=== PATIENT | female | born 1965 | race Caucasian/White ===

== ENCOUNTER 2017-09-21 11:37 | Outpatient (CLI) | payer OTHER ==
--- NOTE | 2017-09-21 14:47 | RAD ---
CERVICAL SPINE FIVE VIEWS: HISTORY: Injury. FINDINGS: The cervical vertebrae maintain height. Minimal anterolisthesis of C3. Disk spaces are preserved. Very mild degenerative change. Posterior elements are normally aligned. Foramina are patent. IMPRESSION: No evidence of acute process. POS: [facility]
== END 2017-09-21 11:38 | disposition home or self-care (01) ==
LOC: MADRAD 11:37
PROVIDERS: ATTEND General Practice
DX: M62.838 Other muscle spasm (principal)
CPT/HCPCS: 72050

== ENCOUNTER 2021-03-24 14:35 | Outpatient (CLI) | payer OTHER, SELFPAY | END 2021-03-24 14:36 | disposition home or self-care (01) | LOC: MADRAD 14:35 | PROVIDERS: ATTEND Nurse Practitioner Family | DX: M54.41 Lumbago with sciatica, right side (principal); M43.12 Spondylolisthesis, cervical region; M43.13 Spondylolisthesis, cervicothoracic region; Z97.5 Presence of (intrauterine) contraceptive device | CPT/HCPCS: 72100; 72220 ==

== ENCOUNTER 2025-06-27 13:53 | Emergency (ER) | payer BC ==
[2025-06-27] MEDS ORDERED: diphenhydrAMINE 50 MG/ML VIAL ONE (14:59)
[2025-06-27] MEDS ORDERED: Prochlorperazine 10 MG/2 ML VIAL ONE (14:59)
[2025-06-27] MEDS ORDERED: Magnesium 2 GM/50 ML BAG (IN WATER) ONE (14:59)
[2025-06-27] MEDS ORDERED: Ketorolac Tromethamine 30 MG (1 mL) VIAL ONE (15:00)
[2025-06-27 15:18] LABS: #Basophils 0.0 thou/uL (0.0-0.2); #Eosinophils 0.1 thou/uL (0.0-0.7); #Lymphocytes 1.2 thou/uL (1.20-3.40); #Monocytes 0.3 thou/uL (0.11-0.59); #Neutrophils 4.9 thou/uL (1.40-6.50); %Basophils 0.6 % (0.0-1.0); %Eosinophils 0.9 % (0.0-10.0); %Lymphocytes 17.8 % (21.0-51.0); %Monocytes 5.1 % (0.0-10.0); %Neutrophils 75.5 % (42.0-75.0); Hematocrit 36.7 % (36.0-47.0); Hemoglobin 12.6 g/dL (12.0-16.0); Mean Corpuscular Hemoglobin 32.0 pg (27.0-31.0); Mean Corpuscular Volume 93.5 fl (78.0-98.0); Platelet Count 244 10x3/uL (130-400); Red Blood Cell (RBC) Count 3.93 mill/uL (4.20-5.40); White Blood Cell (WBC) Count 6.5 10x3/uL (4.8-10.8)
[2025-06-27 15:29] LABS: ALT (SGPT) 18 U/L (Less than 34); AST (SGOT) 19 U/L (11-34); Albumin 4.4 g/dL (3.1-4.5); Alkaline Phosphatase 59 U/L (40-110); Anion Gap 12 mmol/L (10-20); BUN (Urea Nitrogen) 14 mg/dL (9.8-20.1); Bilirubin, Total 0.7 mg/dL (0.3-1.2); Calc. Creatinine Clearance 0 mL/min (70-130); Calcium 9.1 mg/dL (7.8-10.44); Carbon Dioxide 26 mmol/L (22-29); Chloride 106 mmol/L (98-107); Globulin 2.4 g/dL (2.4-3.5); Glucose 97 mg/dL (70-105); Potassium 3.5 mmol/L (3.5-5.1); Sodium 140 mmol/L (136-145)
== END 2025-06-27 17:59 | disposition home or self-care (01) ==
LOC: MADERS 13:53
DX: R51.9 Headache, unspecified (principal); I10 Essential (primary) hypertension; E78.00 Pure hypercholesterolemia, unspecified; J45.909 Unspecified asthma, uncomplicated; Z79.51 Long term (current) use of inhaled steroids; Z79.899 Other long term (current) drug therapy
CPT/HCPCS: 70450; 80053; 85025; 96365; 96367; 96375; J0780; J1200; J1885; J2919; J3475; J7120